=== PATIENT | female | born 1970 | race African-American/Black ===

== ENCOUNTER 2021-11-20 09:40 | Emergency (ER) | payer OTHER ==
[2021-11-20 09:55] VITALS: RESP 18
--- NOTE | 2021-11-20 10:56 | ED ---
General Adult HPI - General Chief complaint: ENT Stated complaint: Nose Bleed Time Seen by Provider: 11/20/21 10:25 Source: patient, RN notes reviewed Mode of arrival: ambulatory Limitations: no limitations - History of Present Illness Initial comments: Patient is a pleasant 51-year-old female presenting to the emergency Department with epistaxis. Patient has had several episodes of last couple of days. Patient was recently discharged from the hospital with COVID-19 infection. Patient was placed on Eliquis. Patient does not like being on Eliquis. Patient states she only has 2 days left of this. No other areas of bleeding. Patient does use nasal oxygen. Patient also is concerned the heat in her house also is making symptoms worse. - Related Data Allergies Allergy/AdvReac Type Severity Reaction Status Date / Time Penicillins Allergy Rash/Hives Verified 11/20/21 09:55 Review of Systems ROS Statement: Those systems with pertinent positive or pertinent negative responses have been documented in the HPI. ROS Other: All systems not noted in ROS Statement are negative. Constitutional: Denies: fever Eyes: Denies: eye pain ENT: Reports: as per HPI, epistaxis. Denies: ear pain Respiratory: Denies: cough Cardiovascular: Denies: chest pain Endocrine: Denies: fatigue Gastrointestinal: Denies: abdominal pain Genitourinary: Denies: dysuria Musculoskeletal: Denies: back pain Skin: Denies: rash Neurological: Denies: weakness Past Medical History Past Medical History: No Reported History History of Any Multi-Drug Resistant Organisms: None Reported Past Surgical History: No Surgical Hx Reported Past Psychological History: No Psychological Hx Reported Smoking Status: Never smoker Past Alcohol Use History: None Reported Past Drug Use History: None Reported General Exam Limitations: no limitations General appearance: alert, in no apparent distress Head exam: Present: normocephalic Eye exam: Present: normal appearance ENT exam: Present: normal oropharynx, other (Dried blood left nares) Neck exam: Present: normal inspection Respiratory exam: Present: normal lung sounds bilaterally Cardiovascular Exam: Present: regular rate, normal rhythm. Absent: irregular rhythm GI/Abdominal exam: Present: soft. Absent: tenderness Extremities exam: Present: normal inspection. Absent: pedal edema, calf tenderness Neurological exam: Present: alert Psychiatric exam: Present: normal affect, normal mood Skin exam: Present: normal color Course Vital Signs 11/20/21 09:49 Temperature 97.9 F Pulse Rate 77 Respiratory 18 Rate Blood Pressure 89/60 O2 Sat by Pulse 97 Oximetry Disposition Clinical Impression: Epistaxis Disposition: HOME SELF-CARE Condition: Stable Instructions (If sedation given, give patient instructions): Nosebleed (ED) Additional Instructions: Please follow-up with primary care physician in the next day or 2 for recheck. If nosebleeding recurs hold your Eliquis. Use nasal clamp if needed, provided. Apply petroleum jelly to the nasal septum as needed gently to avoid rebleeding. Return for persistent bleeding, bleeding from other areas, worsening or change in symptoms or other concerns. Is patient prescribed a controlled substance at d/c from ED?: No Referrals: Dexter Griffin MD [Primary Care Provider] - 1-2 days Time of Disposition: 11:04
[2021-11-20 11:42] VITALS: BP 100/61; PULSE 75; TEMP 98
== END 2021-11-20 11:28 | disposition home or self-care (01) ==
LOC: EC 09:40
DX: R04.0 Epistaxis (principal); Z86.16 Personal history of COVID-19; Z88.0 Allergy status to penicillin
CPT/HCPCS: 99283

== ENCOUNTER → 2022-02-01 | Outpatient (CLI) | payer OTHER ==
[2022-02-01 18:26] LABS: HCT 43.9 % (37.2-46.3); HGB 13.6 g/dL (12.0-15.0); MCH 27.7 pg (27.0-32.0); MCV 89.4 fL (80.0-97.0); Mean Platelet Volume 9.6 fL (9.5-12.2); NRBC Per 100 WBC 0 /100 WBCS (0.0-0.0); Platelet Count 384 X 10*3/uL (140-440); RBC 4.91 X 10*6/uL (4.10-5.20); RDW 13.5 % (11.5-14.5); WBC 12.84 X 10*3/uL (4.50-10.00)
[2022-02-01 18:51] LABS: ALT 23 U/L (8-44); AST 22 U/L (13-35); African American GFR (CKD) 84.6 (60.0-200.0); BUN/Creat Ratio 14.89 Ratio (12.00-20.00); Blood Urea Nitrogen 13.4 mg/dL (9.0-27.0); Calcium 9.7 mg/dL (8.7-10.3); Carbon Dioxide 24.8 mmol/L (20.0-27.5); Chloride 103 mmol/L (96-109); Chol/HDL Ratio 5.98 Ratio; Glucose 119 mg/dL (70-110); LDL Cholesterol,Calculated 189.7 mg/dL (0.0-131.0); Potassium 4.5 mmol/L (3.5-5.5); Sodium 140 mmol/L (135-145)
== END | disposition home or self-care (01) ==
LOC: LABWHC1 10:40
PROVIDERS: ATTEND Internal Medicine
DX: E78.2 Mixed hyperlipidemia (principal)
CPT/HCPCS: 36415; 80048; 80061; 84443; 84450; 84460; 85027

== ENCOUNTER 2023-04-20 11:56 | Emergency (ER) | payer OTHER ==
[2023-04-20 12:10] VITALS: TEMP 98.2
--- NOTE | 2023-04-20 12:43 | ED ---
General Adult HPI - General Chief complaint: Weakness Stated complaint: Fall Time Seen by Provider: 04/20/23 12:14 Source: patient Mode of arrival: ambulatory Limitations: no limitations - History of Present Illness Initial comments: Dictation was produced using [employer] dictation software. please excuse any grammatical, word or spelling errors. 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 She was walking down the steps when her right leg gave out. Patient has been having intermittent bouts of shooting pain with certain movements. Daughter looked at her recently and noticed that she had a left eyelid droop. Patient does not notice it. Denies any pain or numbness to the face. Daughter was concerned that patient is having a stroke. Patient does not have a history of stroke. She has history of COPD and dyslipidemia. The ROS documented in this emergency department record has been reviewed and confirmed by me. Those systems with pertinent positive or negative responses have been documented in the HPI. All other systems are other negative and/or noncontributory. - Related Data Home Medications Medication Instructions Recorded Confirmed Albuterol Sulfate [Ventolin HFA] 2 puff INHALATION RT-Q6H PRN 04/20/23 04/20/23 Allergies Allergy/AdvReac Type Severity Reaction Status Date / Time nystatin Allergy Anaphylaxis Verified 04/20/23 13:09 Penicillins Allergy Rash/Hives Verified 04/20/23 13:09 Review of Systems ROS Statement: Those systems with pertinent positive or pertinent negative responses have been documented in the HPI. ROS Other: All systems not noted in ROS Statement are negative. Past Medical History Past Medical History: COPD, Hyperlipidemia History of Any Multi-Drug Resistant Organisms: None Reported Past Surgical History: No Surgical Hx Reported Past Psychological History: No Psychological Hx Reported Smoking Status: Never smoker Past Alcohol Use History: None Reported Past Drug Use History: None Reported General Exam - General Exam Comments Initial Comments: PHYSICAL EXAM: General Impression: Alert and oriented x3, not in acute distress HEENT: Normocephalic atraumatic, extra-ocular movements intact, pupils equal and reactive to light bilaterally, mucous membranes moist. Cardiovascular: Heart regular rate and rhythm Chest: Able to complete full sentences, no retractions, no tachypnea Abdomen: abdomen soft, non-tender, non-distended, no organomegaly Musculoskeletal: Pulses present and equal in all extremities, no peripheral edema Motor: no focal deficits noted Neurological: CN II-XII grossly intact, no focal motor or sensory deficits noted, very mild left upper eyelid weakness, no facial asymmetry, no facial weakness smiling, NIH is 0 Skin: Intact with no visualized rashes Psych: Normal affect and mood Right lower showing: The hip and ankle strength is symmetrical with the left, no reproducible pain Limitations: no limitations Course Vital Signs 04/20/23 12:08 Temperature 98.2 F Pulse Rate 80 Respiratory 20 Rate Blood Pressure 132/79 O2 Sat by Pulse 99 Oximetry EKG Findings - EKG Comments: EKG Findings:: My EKG interpretation: Ventricular rate 75, sinus rhythm,. 175, QRS 85, QTC 391. No CT prolongation, no QTC prolongation, no ST or T-wave changes noted. Overall, this EKG is unremarkable Medical Decision Making - Medical Decision Making Was pt. sent in by a medical professional or institution (, PA, MOTOR VEHICLE EMISSIONS INSPECTOR, urgent care, hospital, or [place] [facility] facility...) When possible be specific @ -No Did you speak to anyone other than the patient for history (EMS, parent, family, police, friend...)? What history was obtained from this source @ -Daughter at the bedside was concerned patient is having a stroke due to eyelid drooping on the left Did you review nursing and triage notes (agree or disagree)? Why? @ -I reviewed and agree with nursing and triage notes Were old charts reviewed (outside hosp., previous admission, EMS record, old EKG, old radiological studies, urgent care reports/EKG's, [place] [facility] facility records)? Report findings @ -No old charts were reviewed Differential Diagnosis (chest pain, altered mental status, abdominal pain women, abdominal pain men, vaginal bleeding, musculoskeletal, weakness, fever, dyspnea, syncope, headache, dizziness, GI bleed, back pain, seizure, CVA, palpatations, mental health)? @ - Differential CVA: Ischemic stroke, hemorrhagic stroke, brain tumor, atypical migraine, Wernicke's encephalopathy, seizure, multiple sclerosis, meningitis, encephalitis, hypoglycemia, Guillain-Mata, electrolytes disturbance, myasthenia gravis.... This is not meant to be an all-inclusive list EKG interpreted by me (3pts min.). @ -See above X-rays interpreted by me (1pt min.). @ -Right hip x-ray is unremarkable. Right knee x-ray showed mild arthritic changes CT interpreted by me (1pt min.). @ -None done U/S interpreted by me (1pt. min.). @ -None done What testing was considered but not performed or refused? (CT, X-rays, U/S, labs)? Why? @ -Computed tomography scan of the brain was considered however patient's symptoms are very atypical for CVA. She has isolated left periorbital weakness without any other neurologic deficits What meds were considered but not given or refused? Why? @ -None Did you discuss the management of the patient with other professionals (professionals i.e. , PA, MOTOR VEHICLE EMISSIONS INSPECTOR, lab, RT, psych nurse, social work associate, multi craft maintenance technician, teacher, biosecurity officer, rifle case repairer)? Give summary @ -No Was smoking cessation discussed for >3mins.? @ -No Was critical care preformed (if so, how long)? @ -No Were there social determinants of health that impacted care today? How? (Homelessness, low income, unemployed, alcoholism, drug addiction, trans portation, low edu. Level, literacy, decrease access to med. care, [facility], rehab)? @ -No Was there de-escalation of care discussed even if they declined (Discuss DNR or withdrawal of care, Hospice)? DNR status @ -No What co-morbidities impacted this encounter? (DM, HTN, Smoking, COPD, CAD, Cancer, CVA, ARF, Chemo, Hep., AIDS, mental health diagnosis, sleep apnea, morbid obesity)? @ -None Was patient admitted / discharged? Hospital course, mention meds given and route, prescriptions, significant lab abnormalities, going to OR and other pertinent info. @ -52-year-old female brought in by daughter for concerns of stroke. She's been having several days of muscle or skeletal knee pain and feeling like her right leg gives out secondary to knee pain. She has isolated left bartolo-orbital weakness. Pupils are equal round reactive to light. Left face does not show any anhidrosis or myosis. Nurse had drawn blood work. Blood work not indicated however patient requesting that basic labs be ordered Undiagnosed new problem with uncertain prognosis? @ -No Drug Therapy requiring intensive monitoring for toxicity (Heparin, Nitro, Insulin, Cardizem)? @ -No Were any procedures done? @ -No Diagnosis/symptom? Acute, or Chronic, or Acute on Chronic? Uncomplicated (without systemic symptoms) or Complicated (systemic symptoms)? @ -1. Left upper eyelid weakness, 2. Muscle skeletal right knee pain Side effects of treatment? @ -No Exacerbation, Progression, or Severe Exacerbation? @ -No Poses a threat to life or bodily function? How? (Chest pain, [place], [place], pneumonia, PE, COPD, DKA, ARF, appy, cholecystitis, CVA, Diverticulitis, Homicidal, Suicidal, threat to staff... and all critical care pts) @ -No Disposition Clinical Impression: Ptosis Disposition: HOME SELF-CARE Condition: Fair Instructions (If sedation given, give patient instructions): Ptosis (ED) Is patient prescribed a controlled substance at d/c from ED?: No Referrals: None,Stated [Primary Care Provider] - 1-2 days Time of Disposition: 13:20
--- NOTE | 2023-04-20 13:04 | XR ---
Right hip: HISTORY: Pain following fall. COMPARISON: None. TECHNIQUE: 2 views of the right hip were obtained. FINDINGS: There is no fracture, dislocation or focal intraosseous abnormality. The joint space is well-maintain ed. The visualized right hemipelvis is intact. IMPRESSION: No evidence of acute trauma.
--- NOTE | 2023-04-20 13:05 | XR ---
Right knee. HISTORY: Pain following fall. COMPARISON: None TECHNIQUE: 2 views the right knee were obtained. FINDINGS: There is no fracture, dislocation or focal intraosseous abnormality. There is mild joint space narrow ing and marginal hypertrophic spurring of the medial compartment and patellofemoral compartment indic ating mild osteophytic change. There is no definite joint effusion. IMPRESSION: 1. No evidence of acute trauma. 2. Mild 2 compartment osteoarthritic changes described above.
[2023-04-20 14:00] VITALS: BP 131/82; PULSE 75; RESP 18
[2023-04-20 14:04] LABS: Basophils % (A) 0 %; Eosinophils # (A) 0.8 k/uL (0-0.7); Eosinophils % (A) 11 %; HGB 12.8 gm/dL (11.4-16.0); Lymphocytes # (A) 1.6 k/uL (1.0-4.8); Lymphocytes % (A) 21 %; MCH 28.3 pg (25.0-35.0); MCHC 33.6 g/dL (31.0-37.0); MCV 84.2 fL (80.0-100.0); Mean Platelet Volume 9.5; Monocytes # (A) 0.4 k/uL (0-1.0); Monocytes % (A) 5 %; Neutrophils # (A) 4.6 k/uL (1.3-7.7); Neutrophils % (A) 61 %; Platelet Count 216 k/uL (150-450); RBC 4.51 m/uL (3.80-5.40); RDW 13.5 % (11.5-15.5); WBC 7.5 k/uL (3.8-10.6)
[2023-04-20 14:13] LABS: African American GFR (CKD) >90 (>60 ml/min/1.73 sqM); Anion Gap 10 mmol/L; Blood Urea Nitrogen 14 mg/dL (7-17); Calcium 8.7 mg/dL (8.4-10.2); Carbon Dioxide 23 mmol/L (22-30); Chloride 105 mmol/L (98-107); Glucose 169 mg/dL (74-99); Non-African American GFR(CKD) 86 (>60 ml/min/1.73 sqM); Sodium 138 mmol/L (137-145)
[2023-04-20 14:17] LABS: Potassium 4.4 mmol/L (3.5-5.1)
== END 2023-04-20 13:58 | disposition home or self-care (01) ==
LOC: EC 11:56
DX: H02.402 Unspecified ptosis of left eyelid (principal); M25.561 Pain in right knee; J44.9 Chronic obstructive pulmonary disease, unspecified; Z79.899 Other long term (current) drug therapy; Z88.0 Allergy status to penicillin; Z88.8 Allergy status to other drugs, medicaments and biological substances
CPT/HCPCS: 36415; 73502; 80048; 85025; 93005; 99285